=== PATIENT | female | born 1995 | race African-American/Black ===

== ENCOUNTER 2016-06-07 12:34 | Emergency (ER) | payer BC, OTHER ==
[~2016-06-07] VITALS: Ht 165.1 cm; Wt 54.5 kg
[~2016-06-07 12:34] MED LIST: ALBU1AER9 INH; CLIN1GEL5 TOP; CLOTCRE5 TOP; FEXO1TAB46 PO; FLUT0.0529 NAE
[2016-06-07 12:44] VITALS: Ht 165.1 cm; Wt 54.5 kg
[2016-06-07] MEDS ORDERED: SODIUM CHLORIDE 0.9% 1000ML 1,000 ML IV STA (13:15)
[2016-06-07 13:37] LABS: URINE APPEARANCE CLOUDY (CLEAR); URINE BILIRUBIN NEG (NEG); URINE COLOR DK YELLOW; URINE EPITHELIAL CELL AUTO >30 /lpf (0-5); URINE NITRITE NEG (NEG); URINE PH 5.5 (4.5-7.5); URINE SPECIFIC GRAVITY 1.022 (1.000-1.030); UROBILINOGEN NEG (NEG); ZZUR CULT IF INDIC CLEAN CATCH YES
[2016-06-07 13:38] LABS: MANUAL MICROSCOPIC REQUIRED? NO; REVIEW REQ? NO
[2016-06-07] MEDS ORDERED: CLR10 PO (13:40)
--- NOTE | 2016-06-07 13:41 | DIAGNOSTIC IMAGING REPORT ---
CHEST ONE VIEW PORTABLE CLINICAL HISTORY: Cough COMPARISON STUDY: 03/28/2014 FINDINGS: The cardiac and mediastinal contours are normal. There is no evidence of focal pulmonary consolidation. There is no evidence of failure. No pleural effusions are visualized.[ IMPRESSION: No active disease in the chest. Electronically signed by: Arian Nagel M.D. 06/07/2016 1:39 PM Dictated Date/Time: 06/07/2016 1:39 PM
[2016-06-07 13:42] LABS: BASO % 0.2 %; BASO ABS # 0.02 K/uL (0-0.2); COMPLETE YES; EOS % 0.8 %; HEMATOCRIT 38.9 % (37-47); IG% 0.1 %; LYMPH % 20.5 %; MEAN CELL VOLUME 89.2 fL (80-100); MEAN CORPUSCULAR HEMOGLOBIN 28.7 pg (25-34); MEAN CORPUSCULAR HGB CONC 32.1 g/dl (32-36); MEAN PLATELET VOLUME 10.7 fL (7.4-10.4); MONO % 6.3 %; NEUT % 72.1 %; PLATELET COUNT 305 K/uL (130-400); RED BLOOD COUNT 4.36 M/uL (4.2-5.4); WHITE BLOOD COUNT 8.29 K/uL (4.8-10.8)
[2016-06-07 14:05] LABS: BUN/CREATININE RATIO 15.4 (10-20); CREATININE 0.73 mg/dl (0.60-1.20); POTASSIUM 3.5 mmol/L (3.5-5.1)
[2016-06-07 14:08] LABS: ALB/GLOB RATIO 1.1 (0.9-2)
[2016-06-07] MEDS ORDERED: IBUPROFEN 800 MG TAB PO STA (14:20)
[2016-06-07] MEDS ORDERED: IBUPROFEN 600 MG TAB ONE (14:30)
[2016-06-07] MEDS ORDERED: IBUPROFEN 200 MG TAB ONE (14:31)
--- NOTE | 2016-06-07 15:12 | EMERGENCY ROOM VISIT NOTE ---
History First contact with patient: 13:04 Chief Complaint: ILLNESS Stated Complaint: SWOLLEN GLANDS, FATIGUE, CHILLS/SWEATS, MIGRAINES History of Present Illness The patient is a 20 year old female who presents to the Emergency Room with complaints of flulike symptoms 3 weeks. The patient reports that she first developed symptoms 3 weeks ago while at home for break. She was evaluated by an emergency department at home and had a negative flu and strep screen. The patient reports that she was diagnosed with "flulike" symptoms. She states she has been fatigued, she has had swollen glands, intermittent night sweats, intermittent cough, sore throat and occasional headaches. She states the headaches seem to occur when she stands up from a seated position. She also reports body aches and rates her discomfort a 9/10. She has been taking ibuprofen for her symptoms. She states she was prescribed tramadol by the emergency department and did take that, but has since run out of that prescription. She does report she has had some pain in her neck in the area of the swelling glands. She denies any neck stiffness, chest pain, shortness of breath, abdominal pain, nausea, vomiting or urinary symptoms. Review of Systems A complete 10-point Review of Systems was discussed with the patient, with pertinent positives and negatives listed in the History of Present Illness. All remaining Review of Systems questions can be considered negative unless otherwise specified. Past Medical/Surgical History Medical Problems: (1) Hip flexor tendonitis (2) Hip flexor tendonitis (3) Seasonal allergies Social History Smoking Status: Former Smoker Alcohol Use: none Marital Status: single Occupation Status: [employer] student Current/Historical Medications Scheduled Amoxicillin & Pot Clavulanate (Augmentin 875-125 mg), 1 TAB PO BID Fluticasone Propionate (Nasal) (Flonase), 1 SPRAY CHATO TID Loratadine (Claritin), 10 MG PO DAILY Scheduled PRN Albuterol (Proair Hfa), 2 PUFFS INH UD PRN for Asthma Symptoms Allergies Coded Allergies: No Known Allergies (Unverified , 03/27/14) Physical Exam Vital Signs Date Time Temp Pulse Resp B/P Pulse Ox O2 Delivery O2 Flow Rate FiO2 06/07/16 15:55 37.2 56 16 104/59 97 06/07/16 14:09 37.0 67 14 98/66 98 Room Air 06/07/16 12:44 37.0 80 20 124/80 99 Room Air Physical Exam VITALS: Vitals are noted on the nurse's note and reviewed by myself. Vital signs stable. GENERAL: This is a 20-year-old female, in no acute distress, nontoxic in appearance, well-developed well-nourished. SKIN: Capillary reflex less than 2 seconds. No rashes. HEENT: Normocephalic. PERRLA. EOMI. Nares patent. Mucous membranes moist. Neck is supple without nuchal rigidity. There is left anterior cervical lymphadenopathy. HEART: Regular rate and rhythm without murmurs gallops or rubs. LUNGS: Clear to auscultation bilaterally without wheezes, rales or rhonchi. ABDOMEN: Positive bowel sounds x 4. Soft, nontender, without masses or organomegaly. NEURO: Patient was alert and oriented to person place and time. Medical Decision & Procedures ER Provider Diagnostic Interpretation: CHEST ONE VIEW PORTABLE CLINICAL HISTORY: Cough COMPARISON STUDY: 03/28/2014 FINDINGS: The cardiac and mediastinal contours are normal. There is no evidence of focal pulmonary consolidation. There is no evidence of failure. No pleural effusions are visualized.[ IMPRESSION: No active disease in the chest. Laboratory Results 06/07/16 13:30 Red Blood Count 4.36, Mean Corpuscular Volume 89.2, Mean Corpuscular Hemoglobin 28.7, Mean Corpuscular Hemoglobin Concent 32.1, Mean Platelet Volume 10.7, Neutrophils (%) (Auto) 72.1, Lymphocytes (%) (Auto) 20.5, Monocytes (%) (Auto) 6.3, Eosinophils (%) (Auto) 0.8, Basophils (%) (Auto) 0.2, Neutrophils # (Auto) 5.97, Lymphocytes # (Auto) 1.70, Monocytes # (Auto) 0.52, Eosinophils # (Auto) 0.07, Basophils # (Auto) 0.02 06/07/16 13:30 Test 06/07/16 13:22 06/07/16 13:30 Urine Color DK YELLOW Urine Appearance CLOUDY (CLEAR) Urine pH 5.5 (4.5-7.5) Urine Specific [place] 1.022 (1.000-1.030) Urine Protein NEG (NEG) Urine Glucose (UA) NEG (NEG) Urine Ketones NEG (NEG) Urine Occult Blood 2+ (NEG) Urine Nitrite NEG (NEG) Urine Bilirubin NEG (NEG) Urine Urobilinogen NEG (NEG) Urine Leukocyte Esterase SMALL (NEG) Urine WBC (Auto) 5-10 /hpf (0-5) Urine RBC (Auto) 5-10 /hpf (0-4) Urine Hyaline Casts (Auto) 1-5 /lpf (0-5) Urine Epithelial Cells (Auto) >30 /lpf (0-5) Urine Bacteria (Auto) 2+ (NEG) Urine Test NEG (NEG) White Blood Count 8.29 K/uL (4.8-10.8) Red Blood Count 4.36 M/uL (4.2-5.4) Hemoglobin 12.5 g/dL (12.0-16.0) Hematocrit 38.9 % (37-47) Mean Corpuscular Volume 89.2 fL (80-100) Mean Corpuscular Hemoglobin 28.7 pg (25-34) Mean Corpuscular Hemoglobin Concent 32.1 g/dl (32-36) Platelet Count 305 K/uL (130-400) Mean Platelet Volume 10.7 fL (7.4-10.4) Neutrophils (%) (Auto) 72.1 % Lymphocytes (%) (Auto) 20.5 % Monocytes (%) (Auto) 6.3 % Eosinophils (%) (Auto) 0.8 % Basophils (%) (Auto) 0.2 % Neutrophils # (Auto) 5.97 K/uL (1.4-6.5) Lymphocytes # (Auto) 1.70 K/uL (1.2-3.4) Monocytes # (Auto) 0.52 K/uL (0.11-0.59) Eosinophils # (Auto) 0.07 K/uL (0-0.5) Basophils # (Auto) 0.02 K/uL (0-0.2) RDW Standard Deviation 43.6 fL (36.4-46.3) RDW Coefficient of Variation 13.4 % (11.5-14.5) Immature Granulocyte % (Auto) 0.1 % Immature Granulocyte # (Auto) 0.01 K/uL (0.00-0.02) Anion Gap 4.0 mmol/L (3-11) Est Creatinine Clear Calc Drug Dose 105.8 ml/min Estimated GFR () 137.4 Estimated GFR (Non- 118.6 BUN/Creatinine Ratio 15.4 (10-20) Calcium Level 9.0 mg/dl (8.5-10.1) Total Bilirubin 0.6 mg/dl (0.2-1) Aspartate Amino Transf (AST/SGOT) 22 U/L (15-37) Alanine Aminotransferase (ALT/SGPT) 23 U/L (12-78) Alkaline Phosphatase 51 U/L (45-117) Total Protein 7.5 gm/dl (6.4-8.2) Albumin 3.9 gm/dl (3.4-5.0) Globulin 3.6 gm/dl (2.5-4.0) Albumin/Globulin Ratio 1.1 (0.9-2) Lyme Disease IgG Antibody NEG (NEG) Lyme Disease IgM Antibody NEG (NEG) Monoscreen NEG (NEG) Medications Administered Medications (Trade) Dose Ordered Sig/[place]ymberly Route Start Time Stop Time Status Last Admin Dose Admin Sodium Chloride (Nss 1000ml) 1,000 ml @ 999 mls/hr Q1H1M STAT IV 06/07/16 13:15 06/07/16 14:15 DC 06/07/16 13:27 999 MLS/HR Ibuprofen (Motrin Tab) 600 mg STK-MED ONCE .ROUTE 06/07/16 14:30 06/07/16 14:32 DC 06/07/16 14:35 600 MG Ibuprofen (Advil Tab) 200 mg STK-MED ONCE .ROUTE 06/07/16 14:31 06/07/16 14:32 DC 06/07/16 14:35 200 MG Medical Decision Differential diagnosis includes influenza, strep pharyngitis, infectious mononucleosis, sinusitis, viral syndrome, Lyme disease, among others. The patient was evaluated as above. Labs were drawn and IV access was obtained. Imaging studies were performed and read by radiology as above. The patient was medicated with 2 L normal saline solution. The patient was reassessed multiple times during their stay in the emergency department and remained in stable condition. The patient is a 20-year-old female who presents today complaining of flulike symptoms. Labs revealed no leukocytosis, anemia or concerning electrolyte abnormalities. The patient has previously had negative influenza and strep screens. Monospot was negative today. Lyme screen was negative. Urinalysis was not suggestive of infection. I'm unsure the cause of the patient's symptoms. She is persistent that she has a sinusitis. The patient has been describing some frontal headaches and may have an element of sinusitis. She was given a prescription for Augmentin. She will follow-up with [facility] services as needed. Based on the patient's presentation, lab results, and imaging studies, I feel the patient is stable for outpatient treatment. Discharge instructions were reviewed with the patient. The patient verbalized understanding of my assessment and treatment plan and was discharged home in good condition. Impression Primary Impression: Flu-like symptoms Departure Information Dispostion Home / Self-Care Condition GOOD Prescriptions Amoxicillin & Pot Clavulanate (Augmentin 875-125 mg) 1 Tab Tab 1 TAB PO BID for 7 Days, #14 TAB Prov: Erlinda Steve .ALETA 06/07/16 Referrals No Doctor, Assigned (PCP) Patient Instructions My [facility] Additional Instructions You were prescribed Augmentin to be taken twice daily as prescribed. This is an antibiotic. All antibiotics have the potential to cause diarrhea. Stop this medication and contact a medical provider if you were to develop any significant adverse side effects including: wheezing, shortness of breath, passing out, vomiting, or a diffuse rash. Always take antibiotics as directed and COMPLETE the ENTIRE course regardless of the improvement of your symptoms. For pain control, you can use the following [id number] medicines (if >12 yo): - Regular strength (325mg/tab) Tylenol (acetaminophen) 2 tabs every 4-6 hours as needed. Do not exceed 12 tablets in a 24 hour period. Avoid taking more than 4 grams (4000 mg) of Tylenol per day. This includes any other sources of acetaminophen you may take on a regular basis. - Regular strength (200 mg/tab) Advil (ibuprofen) 1-2 tabs every 4-6 hours as needed. Do not exceed a dose of 3200 mg per day. Rest and drink plenty of fluids. Follow-up with [facility] services within one week for further evaluation of your symptoms. Return to the emergency department with any new/worsening symptoms.
[2016-06-07 15:35] LABS: LYME DISEASE AB IGG NEG (NEG); LYME DISEASE AB IGM NEG (NEG)
[2016-06-07] MEDS ORDERED: AMOX875T PO (15:38)
[2016-06-07 15:55] VITALS: BP 104/59; PULSE 56; TEMP 37.2; O2SAT 97
== END 2016-06-07 15:57 | disposition home or self-care (01) ==
LOC: C.EDB 12:36
DX: R53.83 Other fatigue (principal); R59.9 Enlarged lymph nodes, unspecified; R61 Generalized hyperhidrosis; R05 Cough; J02.9 Acute pharyngitis, unspecified; R51 Headache; Z87.891 Personal history of nicotine dependence